=== PATIENT | female | born 1945 | race Caucasian/White ===

== ENCOUNTER 2025-01-06 11:07 | Emergency (ER) | payer MEDICARE, SELFPAY ==
--- NOTE | ~2025-01-06 | CT_ITS ---
EXAMINATION: CT HEAD WITHOUT IV CONTRAST HISTORY: fall with head strike. TECHNIQUE: Unenhanced helical CT of the head was performed per standard departmental protocol. Coronal and sagittal reformats of the head were also evaluated. One or more of the following techniques was used for dose reduction: Automated exposure control, adjustment of the mA and/or kV according to patient size, use of iterative reconstruction technique. DLP: 674 mGy-cm COMPARISON: There are no prior studies available for comparison. FINDINGS: BRAIN: There is mild prominence of the ventricular system and cortical sulci, consistent with atrophy. Periventricular and subcortical white matter hypodensities are noted which are nonspecific, but often seen in the setting of small vessel ischemic disease. There is no mass effect or midline shift. No intra- or extra-axial fluid collections are identified. SINUSES: The visualized paranasal sinuses are clear. The mastoid air cells and middle ear cavities are well pneumatized. ORBITS: The visualized orbits are unremarkable. BONES/SOFT TISSUES: The extracranial soft tissues are unremarkable. The calvarium is intact. No suspicious lytic or sclerotic lesions. CT/CT head/brain wo IV con IMPRESSION: No acute intracranial abnormality. Electronically signed by: Steve Raphael MD 01/06/2025 11:59 AM EDT
--- NOTE | ~2025-01-06 | CT_ITS ---
EXAMINATION: CT FACIAL BONES WITHOUT CONTRAST CLINICAL INFORMATION: Status post fall. Facial injury. COMPARISON: None available. TECHNIQUE: Contiguous axial images through the maxillofacial bones using 3 mm collimation with bone and soft tissue algorithm. Sagittal and coronal reformatted images acquired. DLP: 340.[address] examination was performed using dose optimization techniques as appropriate, variously including the following: *Automated exposure control *Adjustment of mA and/or kV according to patient size (this includes techniques or standardized protocols for targeted exams where dose is matched to indication/reason for exam; i.e. extremities or head) *Use of iterative reconstruction technique FINDINGS: Nasal bones demonstrated in the subtle cortical irregularity on the left side. No nasal septum and vomer are intact. Orbital rims, orbital fissures and orbital apices are intact. Zygomatic arcs are intact. Maxilla, pterygoid plates are intact. Mandible is intact. Temporomandibular joints are intact No hematoma, intraconal or extraconal compartments of the orbits. Eyeballs are intact. Mild mucosal thickening with a polypoid morphology in the paranasal sinuses without air-fluid levels. Tympanic cavities and mastoid cells are aerated. Calcified plaques in the cavernous supracavernous segments both ICAs. Degenerative changes in the periodontal region. Normal alignment between the occipital condyles and lateral masses of C1. CT/CT facial bones wo IV con IMPRESSION: Probable minimal nasal bone fractures. No intraorbital hematoma. Electronically signed by: Gilmar Harmon MD 01/06/2025 12:06 PM EDT
[2025-01-06 11:11] VITALS: BP 161/82; PULSE 75; RESP 16; TEMP 36.2; O2SAT 98; BMI 25.8
--- NOTE | 2025-01-06 11:14 | ED.GENADULT ---
HPI - General Adult General Chief complaint: Fall Stated complaint: fall Time Seen by Provider: 01/06/25 11:49 History of Present Illness ED Provider: Peterson Olivia MD HPI narrative: 79-year-old female with osteoporosis, osteoarthritis, chronic vertigo with nonsyncopal fall just prior to arrival she did put her hands out in front of her felt she may have injured the left 2nd digit pointing to the middle phalange on that side. Also has facial injuries. No vomiting she does feel vertiginous since laying flat on the CT table. No neck pain focal neurologic symptoms. Related Data Previous Rx's ?Medication ?Instructions ?Recorded ondansetron 4 mg disintegrating 4 mg PO Q8H PRN nausea and 01/06/25 tablet vomiting #7 tabs Allergies Allergy/AdvReac Type Severity Reaction Status Date / Time prednisone Allergy Involuntary Verified 01/06/25 11:15 Spasms PMFSH Social History Social History Smoked in Last 30 Days: No Use of substances other than those prescribed or required for medical reasons: No Advance Directives: Yes Advance Directives Information Provided: No Advance Directives on File: No Physical Exam ED Exam Exam: Primary Survey: GCS: 15 Airway: Intact airway Breathing: Spontaneous respirations with bilateral breath sounds Circulation: Palpable bilateral carotid, brachial, femoral DP pulses with good skin color and distal perfusion. Disability: No gross paresis of the extremities or obvious focal neuro deficit. E FAST Ultrasound: NA Secondary Survey GENERAL: Well appearing. No apparent distress. Alert. HEAD: The head is atraumatic, without swelling or ecchymosis of the face or behind the ears, including the periorbital area. There is no tenderness to face, and the oral and nasal mucosa are nonbloody. Dentition is intact. The TMs are without hemotympanum. NECK: There is no midline cervical neck tenderness or stepoffs. The patient denies any numbness, tingling, or weakness of the extremities. ?After CT/clinical clearance; Later examination after collar removal: The patient is able to range their neck completely without midline cervical pain, numbness, tingling, or weakness. EYES: Normal to inspection. Sclera non-icteric. EOMI, Pupils grossly symmetric/reactive. ENMT: Abrasions to the nose no gross deformity. Tender over the proximal nasal bone structures. No epistaxis. Upper lip over the skin/filled from region there is a superficial 1 cm laceration of subcutaneous depth no debris or foreign body. This is not through and through there was only bruising on the buccal mucosal aspect inside the mouth. Well aligned jaw and dentition without trauma. RESPIRATORY: Respiratory effort normal. Lungs clear to auscultation bilaterally. CARDIOVASCULAR: Regular rate. Normal rhythm. No murmur. No rubs. GI: Soft, non-tender, non-distended. No rebound or guarding. No masses palpable. No hepatosplenomegaly. No bruising. MSK: Chest Wall: Atraumatic, nontender, no crepitus, seat belt sign or ecchymosis. Back: No ecchymosis, no abrasions or other external signs of trauma, no midline spinal tenderness. Upper Extremities: Atraumatic, no swelling, deformity, focal tenderness, +FROM of all joints. Lower Extremities: Atraumatic, no swelling, deformity, focal tenderness, +FROM of all joints. SKIN: No jaundice. No abrasions, lacerations, or ecchymosis. NEUROLOGICAL: Alert. Comprehensive Neuro exam: Face symmetric, tongue midline, strong symmetric eye closure intact strong face deviation and shoulder shrug. Sensation intact to light touch throughout 5 out of 5 strength in bilateral upper extremities, 5 and 5 strength in lower extremities bilaterally? PSYCHIATRIC: Alert. Appearance appropriate for situation. Attitude cooperative. Vital Signs: Vital Signs - 24 hr 01/06/25 13:55 Temperature 97.2 F Pulse Rate 75 Respiratory Rate 16 Blood Pressure 161/82 H Pulse Oximetry 98 Oxygen Delivery Method Room Air BMI result Body Mass Index 25.8 Course Course Course Narrative: This is a rapid medical exam performed by Gunnar Dimas NP: Additional HPI, ROS, PE not included below will be deferred to primary provider. Patient is an 79-y/o F not anticoagulated presenting with facial injuries after a fall the other day. States she was gardening and lost her balance falling forward. Abrasions and swelling to nose and upper lip. Does not feel any loose teeth. Plan: imaging Medications Administered Discontinued Medications Generic Name Dose Route Start Last Admin Trade Name Freq PRN Reason Stop Dose Admin Acetaminophen 975 mg 01/06/25 12:31 01/06/25 12:39 Acetaminophen 325 Mg Tablet PO 01/06/25 12:32 975 mg ONCE ONE Administration Lidocaine HCl 5 ml 01/06/25 12:31 01/06/25 12:41 Lidocaine Hcl 1 % 20 Ml Vial INFILTRATI 01/06/25 12:32 5 ml ONCE ONE Administration Ondansetron HCl 4 mg 01/06/25 12:31 01/06/25 12:39 Ondansetron Odt 4 Mg Tab.Lyledis MEHULINGU 01/06/25 12:32 4 mg ONCE ONE Administration Procedures Laceration Laceration 1: Site: face Description: linear Depth: simple, single layer Local Anesthetic: lidocaine 1% Amount of anesthesia used (mL): 4 Pre-repair: wound explored Skin layer closed with: other (Rapid absorbing Vicryl) Size (cm): 6-0 Number of sutures: 3 Medical Decision Making Medical Decision Making MDM Narrative: Medical Decision Makin-year-old female with nonsyncopal fall directly onto the face. Finger injury but does not appear to be fracture clinically. Facial abrasions. CT notes a nondisplaced nasal bone fracture. There was no epistaxis and she is breathing comfortably. No facial deformities otherwise. EOMI in vision intact. Head and cervical spine CT also negative. No loss of consciousness or clear signs of concussion. No extremity or torso injury on examination or by history. Suture of the small laceration of the upper lip without complication Preliminary Favored Differential Diagnosis: Nonsyncopal fall, facial laceration, head injury, neck injury, facial bony injury among additional considered etiologies Testing Interpreted Independently: ?See below for details Radiology or Lab testing Results Reviewed: ?See below for details Consults: ?See below for details Independent Historians/External Chart Reviews: ?See below for details Social Determinants of Health Impacting MDM/Planning: ?See below for details Discharge Plan Discharge Clinical Impression: Laceration of skin of face, Closed nondisplaced fracture of nasal bone Patient Disposition: Home, Self-Care Instructions: Nasal Fracture (ED), Laceration (ED) Additional Instructions: Facial Injury Discharge Instructions Wound Care: - Keep the laceration site clean and dry for the first 24 hours. After that, gently wash with soap and water daily. - Apply a thin layer of petroleum jelly or antibiotic ointment if recommended, and cover with a clean bandage. - Avoid picking at scabs or touching the wound unnecessarily. - Watch for signs of infection: increased redness, swelling, warmth, pus, or fever. If these occur, contact your healthcare provider promptly.[1]https://pubmed.ncbi.nlm.nih.gov/56862105 Suture Removal: - If sutures were used, they will need to be removed in 5?7 days for facial wounds. Follow up as directed for suture removal.[1]https://pubmed.ncbi.nlm.nih.gov/42177310 Pain and Swelling: - Use acetaminophen or ibuprofen as needed for pain, unless otherwise instructed. - Apply a cold pack to the area for 15?20 minutes at a time, several times a day, to reduce swelling. Nasal fracture care: ? Avoid any trauma or pressure to the nose. Do not blow your nose forcefully. ? Sleep with your head elevated to help reduce swelling. ? Mild nasal congestion is common; saline nasal spray may help. ? If you notice difficulty breathing through your nose, persistent bleeding, or a change in the shape of your nose, notify your provider.[1][4] Activity: ? Avoid contact sports or activities that could result in facial injury for at least 4?6 weeks, or as advised by your provider.[5-6] ? Resume normal activities as tolerated, but avoid strenuous exercise for the first few days. Follow-Up: ? Schedule a follow-up appointment within 3?5 days to reassess healing and nasal alignment.[1][4] ? If you experience severe pain, persistent bleeding, fever, or any concerning symptoms, seek medical attention immediately. Other Instructions: ? Tetanus prophylaxis is recommended if your immunization status is not up to date.[3] ? Antibiotics are not routinely needed for simple facial lacerations unless there is a high risk of infection or specific provider instructions.[2] If you have any questions or concerns, please contact your healthcare provider. Prescriptions: New ondansetron 4 mg tablet,disintegrating 4 mg PO Q8H PRN (Reason: nausea and vomiting) Qty: 7 0RF Interventions: ED Discharge Assessment Last Done: 01/06/25 13:55 Discharge Date/Time: 01/06/25 13:55 Print Language: Belarusian
[2025-01-06] MEDS: Lidocaine HCl 1 % 20 ML VIAL 5 ML INFILTRATI (12:41)
--- OUTSIDE RECORDS SUMMARY | 2025-01-06 12:59 | XMS_ITS ---
Author Name [facility] Organization Unknown Care Team Organization Name Specialty Phone Email Start Date End Da [facility] 11/23/2024
--- OUTSIDE RECORDS SUMMARY | 2025-01-06 12:59 | XMS_ITS | Patient Health Record ---
Author Organization [facility] Address [address] [place] [address] Care Team Providers Care Phlebotomist Associate Name Role Phone Cecile Arita Primary Care Provider Greta Cote Unavailable [phone] Allergies Allergen (clinical drug ingredient) Drug/Non Drug Allergy documented on EMR Reaction Allergy Type Onset Date Status aspirin Aspirin stomach issues Drug Allergy Ac tive econazole Econazole Nitrate Unknown Drug Allergy Active miconazole Azolen Tincture Unknown Drug Allergy Active luliconazole Luzu Unknown Drug Allergy Acti ve Adhesive rash, sensitive skin Allergy Active metronidazole Metronidazole Unknown Drug Allergy Active prednisolone Prednisolone shaking, jittery Drug Allergy Active Reason For Referral No Information Medications Medication SIG (Take, Route, Frequency, Duration) Notes Start Date End Date Status Atorvastatin Calcium 20 MG 1 tablet Oral ly Once a day Active Extra Strength Acetaminophen Active Prolia Active Furosemide 20 MG 1 tablet Orally Once a day Active Meclizine HCl 25 MG 1 tablet as needed Orally every 12 hrs Not-Taking Citalopram Hydrobromide 20 MG 1 tablet Orally Once a day; Duration: 30 day(s) Active Calcium 500 MG 1 tablet with meals Orally Twice a day; Duration: 30 day(s) Active Multi-Vitamin Active Social History Tobacco Use: Social History Observation Description Date Details (start date - stop date) Former Smoker NA - NA Tobacco Use/Smoking Question Answer Notes Are you a: former smoker Alcohol Screen Question Answer Notes Did you have a drink containing alcohol in the p ast year? No Points 0 Interpretation Negative Tobacco use other than smoking: Question Answer Notes Are you an other tobacco user? No Encounters Encounter Location Date Provider Diagnosis [facility] [address] [place] [address] 06/20/2024 Greta Hernandez Plan Of Treatment Pending Test Test Name Order Date X ray : Foot, left 3V 09/18/2022 X ray : Foot, left 3V 10/20/2022 X ray : Foot, left 3V 11/17/2022 X ray : Foot, left 3V 01/26/2023 Insurance Providers Payer Name Payer Address Payer Phone Subscriber Number Group Number Insured Name Patient Relationship to Insured Coverage Start Date Coverage End Date [employer] Preferred [address] [place] [address] [phone] [id number] Jeanna Delgadillo Self - patient is the insured Medical (General) History Medical History History ICD Code Arthritis Back,Hip,and Knee pain Broken bones basal cell carcinoma Cancer - jawline Crohns disease Depression Diverticulosis Osteoporosis Eczema chronic sinusitis Stomach ulcer Vertigo Measles Mumps Chicken pox Pneumonia Shingles 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 Joint implants/screws Surgical History Surgery Date(Month/Year) tonsillectomy 1948 Rib Surgery 09/29/1992 breast cyst - benign 10/05/1998 disc surgery - two bulging disks 999 rotator cuff tear repair colonoscopy - Ulcerative Proctitis 09/29 duodonel ulcer 1982 Thumb Surgery 04/28/2005 deviated septum repair 03/2005 bulging disk pelvic alignment - right le g shorter then left 07/21/2007 colonoscopy - one benign cyst 02/19/2010 wrist surgery 12/02/2010 mohs surgery 04/22/2013 hip surgery 11/2013 back surgery 02/2022 gall bladder 12/02/22 Hospitalization History Reason Date(Month/Year) [facility]- gall bladder, 5 day stay, reha b 3 weeks 12/02/22
--- OUTSIDE RECORDS SUMMARY | 2025-01-06 13:00 | XMS_ITS | Clinical Summary ---
Author Organization [facility] [address] [place] [address] [place] [address] Phone Care Team Providers Care Supervisor [facility] Name Role Phone Cecile Cesar MD Primary Care Prov ider Allergies Active Allergy Reactions Criticality Noted Date Comments Metronidazole 02/19/2023 Prednisolone Dizziness Medium 01/06/2023 Jittery Medications calcium-vitamin D3-vitamin K 650 mg-12.5 mcg-40 mcg tablet,chewable Take by mouth 2 times daily. Active meclizine (ANTIVERT) 25 mg tablet Take 1 tablet (25 mg total) by mouth 3 (three) times a day if needed. Active multivitamin (MULTIPLE VITAMINS ORAL) Take by mouth daily. Active rosuvastatin (CRESTOR) 10 mg tablet TAKE 1 TABLET BY MOUTH 1 TIME EACH DAY. 90 tablet 1 09/22/19 25 Active denosumab (PROLIA) 60 mg/mL syringe syringeIndicatio ns:Age-related osteoporosis without current pathological fracture Inject 1 mL (60 mg total) under the skin 1 (one) time for 1 dose. 1 mL 11/11/19 25 Active citalopram (CeleXA) 40 mg tablet TAKE 1 TABLET BY MOUTH EVERY DAY IN THE MORNING 90 tablet 12/20/19 25 Active citalopram (CeleXA) 40 mg tablet TAKE 1 TABLET BY MOUTH EVERY DAY IN THE MORNING 90 tablet 09/16/19 25 025 Discontinued Hospital, Clinic, or Other Facility Administered Medication Ordered Dose Route Frequency Start Date End Date Status sodium hyaluronate (viscosup) intra-articular injection 20 mgIndications:Primary osteoarthritis of right knee 20 mg IAtc Once PRN Procedure 12/07/2024 12/07/2024 Ended Active Problems Problem Noted Date Diagnosed Date Status post total replacement of left hip 2024 Trochanteric bursitis of left hip 10/19/2024 Overweight (BMI 25.0-29.9) 12/22/2023 Gait instability 11/12/2023 Primary osteoarthritis of right knee 11/12/2023 (HFpEF) heart failure with p reserved ejection fraction ([facility] V24, [facility] V28) 06/30/2023 Overview (02/18/2024): - Hospitalized for acute cholecystitis in December 2022 which was complicated by flash pulmonary edema with associated high BNP, abnormal lung imaging, hypoxia-responded to few doses of IV Lasix-patient was discharged on Lasix 20 mg p.o. daily - Echocardiogram (I have independently reviewed images) showed normal left ventricular cavity size, wall thickness, and systolic function, normal regional wall motion (though endocardial definition is somewhat suboptimal in apical views) with ejection fraction 55 to 60%-would recommend Definity contrast enhancement for future echoes- mildly dilated right ventricle with normal systolic function, no hemodynamically significant valve disease including no evidence of mitral valve prolapse or MR, normal left ventricular diastolic function, normal pulmonary artery systolic pressure Last Assessment & Plan: Clinically euvolemic on exam without evidence of decompensated heart failure, I suspect her episode of HFpEF exacerbation was situational in the setting of recent surgery with likely considerable IV fluid load. Under normal circumstances, she appears to be doing okay. Her more recent issues with fatigue and some exertional dyspnea is likely related to longstanding deconditioning with multiple recent hospitalizations and COVID-19 infection. She is slowly progressing in the right direction. I encouraged her to continue with what ever daily aerobic activity and strengthening activities she can do. This would include any chair exercises recommended by physical therapy, small amounts of walking, ongoing light housework. I encouraged her to pursue treatment for osteoporosis as this can often be a big cause of morbidity and even mortality as people age. Otherwise, she feels as though low-dose Lasix is helping her with abdominal bloating. It has not affected her kidneys or potassium in any way so I think this is fine to continue. She will be having an upcoming PCP appointment at which point I would recommend a repeat BMP. With regards to her question of septal hypokinesis on echo, after review of her echo I did not feel this to be the case. Furthermore, there is no objective evidence on EKG. Assessment & Plan (06/29/2024 4:02 PM EDT): Her HFpEF exacerbations have been very situational and limited. She has not had any sort of evidence of HFpEF exacerbation for a few years now. As such, I think scaling back to as needed Lasix is very reasonable. - Lasix as needed for weight gain greater than 3 pounds in 1 day, 5 pounds in 1 week, or increasing lower extremity edema. - Monitor weight daily. -Observe low-sodium diet Orders: Ambulatory referral to Cardiology ECG 12 lead Osteoarthritis of both hands 06/10/2023 Trigger middle finger of right hand 06/10/2023 Hyperlipidemia 03/03/2023 Overview (02/18/2024): Last Assessment & Plan: Repeat lipid profile along with routine labs at her next PCP appointment, continue rosuvastatin 10 mg at bedtime. I did review that because of this diagnosis she is at increased risk for for cardiovascular events over the next 10 years however, she is mitigating that risk with the rosuvastatin. Would also recommend Mediterranean style diet and as much regular aerobic exercise as she is able to do. Low suspicion for any current anginal symptoms. Assessment & Plan (06/29/2024 4:02 PM EDT): Most recent lipids are somewhat suboptimally controlled but the patient has never had cardiovascular events. As such, continue low-dose rosuvastatin. I will try to get her most recent lipid profile from her PCPs office. Age-related osteoporosis wit hout current pathological fracture 02/19/2023 Age-related osteoporosis with current pathologic al fracture 01/06/2023 Encounters Date Type Department Care Team Description 12/07/2024 3:30 PM EDT Office Visit Orthopedic Surgery - [address] [place] [phone] Camron Costa MD Primary osteoarthritis of right knee (Primary Dx) 11/30/2024 11:30 AM EDT Office Visit Orthopedic [facility] [address] [phone] Camron Costa MD Primary osteoarthritis of right knee (Primary Dx) 11/23/2024 3:30 PM EDT Office Visit [place] [address] [phone] Camron Costa MD Primary osteoarthritis of right knee (Primary Dx) 11/17/2024 Telephone Endocrinology - [address] [phone] Soto Ron MD 11/15/2024 Telephone Endocrinology [address] [phone] Soto Ron MD 11/10/2024 10:30 AM EDT Office Visit [address] [phone] Soto Ron MD Age-related osteoporosis without current pathological fracture (Primary Dx) 11/08/[address] [phone] Soto Ron MD 10/21/2024 Telephone Orthopedic [place] [address] [phone] Sharon Hathaway [place] 10/19/2024 9:30 AM EDT Office Visit Orthopedic [place] [address] [phone] Camron Costa MD Tendinitis involving left hip abductors (Primary Dx); Follow-up exam; Chronic midline low back pain without sciatica; Trochanteric bursitis of left hip; Primary osteoarthritis of right knee; Left hip pain; Strain of fascia of lower back; Status post total replacement of left hip; Age-related osteoporosis without current pathological fracture from Last 3 Months Immunizations Immunization Administration Dates Next Due Moderna SARS-CoV-2 COVID-19, mRNA, LNP-S, preservative free 09/04/2021,02/15/2021,06/21/2020,05/24 Pneumococcal conjugate 13 va lent (Prevnar 13, PCV13) 2mo and older 03/16/2014 Pneumococcal polysaccharide 23 valent (Pneumovax 23) 2yo and older 03/22/2015,02/27/2009 TD, Adsorbed, Preservative Free 09/04/2017 Tdap Tetanus diptheria acell ular pertussis (Boostrix; Adacel) 7yo and older 07/02/2006 Zoster Live 04/06/2009 Zoster recombinant (Shingrix ) 19yo and older 12/28/2017,09/04/2017 Surgical History Surgery Date Site/Laterality Comments CHOLECYSTECTOMY 11/2022 N/A PROCEDURE: LAPAROSCOPY, CHOLECYSTECTOMY TONSILLECTOMY 1947 PROCEDURE: HISTORICAL TONSILLECTOMY NASAL SEPTUM SURGERY 2004 PROCEDURE: GA SEPTOPLASTY/SUBMUCOUS RESECJ W/WO CARTILAGE GRF; COMMENT: Dr. Bear HAND SURGERY 2005 Right PROCEDURE: HISTORICAL HAND SURGERY; COMMENT: thumb surgery Dr. 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 History of shingles 1998 DX:History o f shingles History of proctitis 1988 DX:History of proctitis History of duodenal ulcer 1981 DX:His tory of duodenal ulcer History of basal cell carcinoma DX:History of basal cell carcinoma; COMMENT: Left leg Atopic dermatitis DX:Atopic derm atitis Lumbar degenerative disc disease DX:Lumbar degenerative disc disease History of fracture of rib 1992 DX:Hi story of fracture of rib History of cyst of breast 1998 DX:His tory of cyst of breast History of radius fracture 11/2010 DX:Hi story of radius fracture BPPV (benign paroxysmal posi tional vertigo) DX:BPPV (benign paroxysmal p ositional vertigo) Osteoarthritis of left hip DX:Os teoarthritis of left hip Family History Medical History Relation Name Comments LISA disease Brother No Known Problems Daughter Mary Other: Accidental Father homicide Alcohol abuse Mother Heart attack Mother Liver cancer Mother Breast cancer Neg Hx Colon cancer Neg Hx Ovarian cancer Neg Hx Relation Name Status Comments Brother Alive Daughter Mary Alive Father Maternal Grandfather Maternal Grandmother Mother Paternal Grandfather Paternal Grandmother Social History Tobacco Use Types Packs/Day Years Used Date Smoking Tobacco: Former Smokeless Tobacco: Never Alcohol Use Standard Drinks/Week Comments Not Currently 0 (1 standard drink = 0.6 oz pur e alcohol) Housing Instability Answer Date Recorde d Are you worried that in the next 2 months you may not have stable housing? No 12/17/2024 Food Access & Nutrition Answer Date Rec orded Do you have access to a vari ety of food including fruits and vegetables? Yes 12/17/2024 Access to Healthcare Answer Date Record ed Within the last 3 months, ho w many times did you visit the emergency department for your medical care? 0 12/17/2024 Health Literacy Answer Date Recorded How often do you need to hav e someone help you when you read instructions, pamphlets, or other written material from your doctor or pharmacy? Rarely 12/17/2024 Caregiver: How often do you need to have someone help you when you read instructions, pamphlets, or other written material from your doctor or pharmacy? Not on file 12/17/2024 Financial Risk Answer Date Recorded How hard is it for you to pa y for the very basics like food, housing, medical care, and air conditioning / heating? Not very hard 12/17/2024 Transportation Answer Date Recorded Has the lack of transportati on kept you from meetings, work, or from getting things needed for daily living? No Has the lack of transportati on kept you from medical appointments or from getting medications? No 12/17/2024 Social Isolation Answer Date Recorded How often do you feel lonely or isolated from th ose around you? Never 12/17/2024 Food Risk Answer Date Recorded Within the past 12 months we worried whether our food would run out before we got money to buy more. Never true 12/17/2024 Within the past 12 months th e food we bought just didn't last and we didn't have money to get more. Never true 12/17/2024 Dependent Care Answer Date Recorded Do you need help finding or paying for care for your loved ones. For example, special needs child caregiver or elderly care for an older adult? No 12/17/2024 Education Answer Date Recorded Do you think completing more education or training, like finishing a GED, going to college, or learning a trade, would be helpful for you? No 12/17/2024 Employment and Income Answer Date Recor ded During the last four weeks, have you been actively looking for work? No 12/17/2024 Living Situation Answer Date Recorded What is your living situation? Unrecognized valu e 12/17/2024 Comments Unknown Sex and Gender Information Value Date Recorded Sex Assigned at Female 03/03/2024 11:49 AM EST Legal Sex Female 8:16 PM EST Gender Identity Female 03/03/2024 11:49 AM EST Sexual Orientation Straight 03/03/2024 11 :49 AM EST Obstetrics History Last Filed Vital Signs Vital Sign Reading Time Taken Comments Blood Pressure 121/62 11/10/2024 10:25 AM EDT Pulse 90 11/10/2024 10:25 AM EDT Temperature - - Respiratory Rate 15 11/10/2024 10:25 AM EDT Oxygen Saturation 96% 06/08/2024 8:55 AM EST Inhaled Oxygen Concentration - - Weight 75.8 kg (167 lb) 11/10/2024 10:25 AM EDT Height 171.5 cm (5' 7.5 ) 11/10/2024 10:25 AM ED T Body Mass Index 25.77 11/10/2024 10:25 AM EDT Plan of Treatment Upcoming Encounters Date Type Department Care Team (Late st Contact Info) Description 01/11/2025 11:00 AM EDT Evaluation Outpatient Rehabilitation - [address] [phone] Jaylon Olivo, KEI 01/24/2025 2:45 PM EDT Appointment Bone Density - [address] [phone] 02/01/2025 12:30 PM EDT Office Visit [facility] - [address] [phone] Beatrice Tafoya PA [address] [place], [place] 03/09/2025 1:30 PM EST Office Visit Orthopedic Surgery - [address] 175 [facility] 250 [place] [phone] Camron Costa MD 175 [facility] [address] [place] [address] Health Maintenance Due Date Last Done Comments RSV Immunization Adult Patients (1 - 1-dose 75+ series) 10/12/2019 Medicare Annual Wellness Visit 04/30/2023 COVID-19 Vaccine (7 - Moderna risk season) 2024 01/28/2024, 05/09/2023, 09/04/2021, Additional history exists Influenza Vaccine (#1) 2024 01/20/2024, 2022 Hypertension/CHF/CAD Annual BMP Blood Test 11/14/2025 11/14/2024, 11/14/2024, 01/14/2023, Additional history exists Social Influencers of Health Screening 12/17/2025 12/17/2024 Falls Risk Assessment 12/20/2025 12/20/2024 DTaP,Tdap,and Td Vaccines (3 - Td or Tdap) 09/05/2027 09/04/2017, 07/02/2006 Cholesterol Screening (Lipid Panel) 11/14/2029 11/14/2024, 01/14/2023, 01/08/2022 Osteoporosis Screening (Bone Density Screening) 08/15/2032 08/15/2022, 03/07/2020, 09/25/2017, Additional history exists Pneumococcal Vaccine: 50+ Years Completed 03/22/2015, 03/16/2014, 02/27/2009 Zoster Vaccines Completed 12/28/2017, 06/04/2017, 04/06/2009 Depression Screening Completed 12/17/2024 HIB Vaccines Aged Out No longer eligi ble based on patient's age to complete this topic HPV Vaccines Aged Out No longer eligi ble based on patient's age to complete this topic Hepatitis A Vaccines Aged Out No long er eligible based on patient's age to complete this topic Hepatitis B Vaccines Aged Out No long er eligible based on patient's age to complete this topic IPV Vaccines Aged Out No longer eligi ble based on patient's age to complete this topic MMR Vaccines Aged Out No longer eligi ble based on patient's age to complete this topic Meningococcal ACWY Vaccine Aged Out N o longer eligible based on patient's age to complete this topic Meningococcal B Vaccine Aged Out No l onger eligible based on patient's age to complete this topic RSV Immunization Patients Under 20 months Aged Out No longer eligible based on patient's age to complete this topic Varicella Vaccines Aged Out No longer eligible based on patient's age to complete this topic Procedures Procedure Name Priority Date/Time Associated Diagnosis Comments GA ARTHROCENTESIS/ASPIRAT ION/INJECTION MAJOR JOINT/BURSA W/O U/S GUIDANCE Routine 12/07/2024 3:30 PM EDT Primary osteoarthritis of right knee GA ARTHROCENTESIS/ASPIRAT ION/INJECTION MAJOR JOINT/BURSA W/O U/S GUIDANCE Routine 11/30/2024 11:30 AM EDT Primary osteoarthritis of right knee GA ARTHROCENTESIS/ASPIRAT ION/INJECTION MAJOR JOINT/BURSA W/O U/S GUIDANCE Routine 11/23/2024 3:30 PM EDT Primary osteoarthritis of right knee CALCIUM Routine 11/14/2024 4:33 PM EDT Age-related osteoporosis without current pathological fracture CREATININE, SERUM Routine 11/14/2024 4:3 3 PM EDT Age-related osteoporosis without current pathological fracture BUN Routine 11/14/2024 4:33 PM EDT Age-related osteoporosis without current pathological fracture GA PROTEIN ELECTROPHORETIC FRACTIONATION & QUANTITATION SERUM Routine 11/14/2024 4:32 PM EDT Age-related osteoporosis without current pathological fracture PROTEIN, TOTAL Routine 11/14/2024 4:32 PM EDT Age-related osteoporosis without current pathological fracture COMPREHENSIVE METABOLIC PANEL Routine 11/14/2024 4:32 PM EDT Mixed hyperlipidemia LIPID PANEL WITH REFLEX TO DIRECT LDL Routine 11/14/2024 4:32 PM EDT Mixed hyperlipidemia THYROID STIMULATING HORMONE Routine 11/14/2024 4:32 PM EDT Mixed hyperlipidemia PARATHYROID HORMONE INTACT Routine 11/14/2024 4:32 PM EDT Age-related osteoporosis without current pathological fracture PROTEIN ELECTROPHORESIS, SERUM Routine 11/14/2024 4:32 PM EDT Age-related osteoporosis without current pathological fracture VITAMIN D 25 HYDROXY Routine 11/14/2024 4:32 PM EDT Age-related osteoporosis without current pathological fracture CALCIUM, URINE, 24H Routine 11/14/2024 4 :29 PM EDT Age-related osteoporosis without current pathological fracture CREATININE, URINE, 24H Routine 4:29 PM EDT Age-related osteoporosis without current pathological fracture XR PELVIS 1-2 VIEWS Routine 10/19/2024 1 0:11 AM EDT Tendinitis involving left hip abductors Left hip pain Status post total replacement of left hip XR LUMBAR SPINE 2-3 VIEWS Routine 10/19/2024 10:11 AM EDT Chronic midline low back pain without sciatica Strain of fascia of lower back Age-related osteoporosis without current pathological fracture History of vertebral compression fracture XR KNEE 4+ VIEWS RIGHT Routine 9:38 AM EDT Follow-up exam Primary osteoarthritis of right knee from Last 3 Months Results * GA ARTHROCENTESIS/ASPIRATION/INJECTION MAJOR JOINT/BURSA W/O U/S GUIDANCE (12/07/2024 3:30 PM EDT) Camron Allison MD - 12/07/2024 3:30 PM EDT Camron Costa MD 12/07/2024 4:22 PM L Inj/Asp: R knee Details: 22 G needle, anterolateral approach Medications: 20 mg sodium hyaluronate (viscosup) 10 mg/mL(mw 2.4 -3.6 million) Outcome: tolerated well, no immediate complications Procedure: After discussion of risks and benefits, informed consent was verbally obtained for RIGHT knee viscosupplementation gel injection. The lateral arthroscopic soft spot was identified and marked. This was sterilized with chlorhexidine and alcohol. I then injected EUFLEXXA 20mg intra-articularly without resistance. Hemostasis was achieved and a sterile Band-Aid was applied. The patient tolerated the procedure well. Postinjection risks and instructions were reviewed including activity modification, cold therapy, potential NSAIDs use, and monitoring for signs of complications. Informed Consent: Laterality: Right Relevant images/test results available and reviewed: yes Health status cleared: Yes Procedure/treatment, purpose, treatment alternatives, risks/potential complications and benefits explained: yes Patient questions answered: yes Patient agrees, verbalizes understanding, and wants to proceed: yes Consent given by: Patient Informed consent discussion completed by Physician/NIHARIKA with patient: Verbal Pre-procedure timeout performed: yes us Camron Costa MD IN CLINIC/BEDSIDE ORD ERABLES Final Result * GA ARTHROCENTESIS/ASPIRATION/INJECTION MAJOR JOINT/BURSA W/O U/S GUIDANCE (11/30/2024 11:30 AM EDT) Narrative Camron Costa MD - 11/30/2024 11:30 AM EDT Camron Costa MD 11/30/2024 12:25 PM L Inj/Asp: R knee Indications: pain Details: 22 G needle, anterolateral approach Medications: 20 mg sodium hyaluronate (viscosup) 10 mg/mL(mw 2.4 -3.6 million) Procedure: After discussion of risks and benefits, informed consent was verbally obtained for RIGHT knee viscosupplementation gel injection. The lateral arthroscopic soft spot was identified and marked. Area of prior bruising was avoided. This was sterilized with chlorhexidine and alcohol. I then injected EUFLEXXA 20MG intra-articularly without resistance. Hemostasis was achieved and a sterile Band-Aid was applied. The patient tolerated the procedure well. Postinjection risks and instructions were reviewed including activity modification, cold therapy, potential NSAIDs use, and monitoring for signs of complications. Informed Consent: Laterality: Right Relevant images/test results available and reviewed: yes Health status cleared: Yes Procedure/treatment, purpose, treatment alternatives, risks/potential complications and benefits explained: yes Patient questions answered: yes Patient agrees, verbalizes understanding, and wants to proceed: yes Consent given by: Patient Informed consent discussion completed by Physician/NIHARIKA with patient: Verbal Pre-procedure timeout performed: yes us Camron Costa MD IN CLINIC/BEDSIDE ORD ERABLES Final Result * GA ARTHROCENTESIS/ASPIRATION/INJECTION MAJOR JOINT/BURSA W/O U/S GUIDANCE (11/23/2024 3:30 PM EDT) Camron Allison MD - 11/23/2024 3:30 PM EDT Camron Costa MD 11/23/2024 3:49 PM L Inj/Asp: R knee Indications: pain Details: 22 G needle, anterolateral approach Medications: 20 mg sodium hyaluronate (viscosup) 10 mg/mL(mw 2.4 -3.6 million) Outcome: tolerated well, no immediate complications Procedure: After discussion of risks and benefits, informed consent was verbally obtained for RIGHT knee viscosupplementation gel injection. The lateral arthroscopic soft spot was identified and marked. This was sterilized with chlorhexidine and alcohol. I then injected EUFLEXXA 20MG intra-articularly without resistance. Hemostasis was achieved and a sterile Band-Aid was applied. The patient tolerated the procedure well. Postinjection risks and instructions were reviewed including activity modification, cold therapy, potential NSAIDs use, and monitoring for signs of complications. Informed Consent: Laterality: Right Relevant images/test results available and reviewed: yes Health status cleared: Yes Procedure/treatment, purpose, treatment alternatives, risks/potential complications and benefits explained: yes Patient questions answered: yes Patient agrees, verbalizes understanding, and wants to proceed: yes Consent given by: Patient Informed consent discussion completed by Physician/NIHARIKA with patient: Verbal Pre-procedure timeout performed: yes us Camron Costa MD IN CLINIC/BEDSIDE ORD ERABLES Final Result * (ABNORMAL) Creatinine (11/14/2024 4:33 PM EDT) [facility] Signature Creatinine 0.97 0.50 - 1.10 mg/dL LAB CHEMISTRY METHOD 11/14/2024 8:03 PM EDT [facility] eGFR 59(L) >=60 mL/min/1. 73m2 LAB CHEMISTRY METHOD 11/14/2024 8:03 PM EDT [facility] Comment:Calculation based on the Chronic Kidney Disease Epidemiology Collaboration (CKD-EPI) equation refit without adjustment for race. Blood Venous blood specimen / Unknown Venipuncture / Unknown 11/14/2024 4:33 PM EDT 11/14/2024 4:33 PM EDT us Soto Ron MD LAB BLOOD ORDERABLES Final Resul t Performing Organization Address [facility]/ZIP Co de Phone Number [facility] [address] [place] [address], [place] [phone] * (ABNORMAL) BUN (11/14/2024 4:33 PM EDT) BUN 26(H) 5 - 25 mg/dL LAB CHEMISTRY METHOD 11/14/2024 8:03 PM EDT [facility] Blood Venous blood specimen / Unknown Venipuncture / Unknown 11/14/2024 4:33 PM EDT 11/14/2024 4:33 PM EDT us Soto Ron MD LAB BLOOD ORDERABLES Final Resul t Performing Organization Address [facility]/ZIP Co de Phone Number [facility] [address] [place] [address], [place] [phone] * Calcium (11/14/2024 4:33 PM EDT) Calcium 9.3 8.5 - 10.5 mg/dL LAB CHEMISTRY METHOD 11/14/2024 8:03 PM EDT [facility] Blood Venous blood specimen / Unknown Venipuncture / Unknown 11/14/2024 4:33 PM EDT 11/14/2024 4:33 PM EDT us Soto Ron MD LAB BLOOD ORDERABLES Final Resul t Performing Organization Address [facility] Hospital/ZIP Co de Phone Number [facility] [address] [place] [address], [place] [phone] * PATHOLOGIST REVIEW PROTEIN ELECTROPHORESIS (11/14/2024 4:32 PM EDT) Pathologist Interpretation Kait Calhoun MD 11/15/2024 1:10 PM EDT [facility] Blood Venous blood specimen / Unknown Venipuncture / Unknown 11/14/2024 4:32 PM EDT 11/14/2024 4:32 PM EDT Soto Ron MD LAB BLOOD ORDERABLES Final Resul t Performing Organization Address [facility]/ZIP Co de Phone Number [facility] [address] [place] [address], [place] [phone] * (ABNORMAL) Lipid panel with reflex to direct LDL (11/14/2024 4:32 PM EDT) Cholesterol 161 0 - 200 mg/dL LAB CHEMISTRY METHOD 11/14/2024 7:27 PM EDT [facility] Triglycerides 189(H) 0 - 150 mg/dL LAB CHEMISTRY METHOD 11/14/2024 7:27 PM EDT [facility] HDL 54 >=40 mg/dL LAB CHEMISTRY METHOD 11/14/2024 7:27 PM EDT [facility] LDL Calculated 69 0 - 100 mg/dL LAB CHEMISTRY METHOD 11/14/2024 7:27 PM EDT [facility] Comment:Estimated LDL Calcul ated using equation: Total cholesterol - HDL cholesterol - (Triglycerides/5) VLDL Cholesterol Sarbjit 37.8 mg/dL LAB CHEMISTRY METHOD 11/14/2024 7:27 PM EDT [facility] Non HDL Chol. (LDL+VLDL) 107 <145 mg/dL LAB CHEMISTRY METHOD 11/14/2024 7:27 PM EDT [facility] Chol/HDL Ratio 3.0 0.0 - 4.4 LAB CHEMISTRY METHOD 11/14/2024 7:27 PM EDT [facility] Blood Venous blood specimen / Unknown Venipuncture / Unknown 11/14/2024 4:32 PM EDT 11/14/2024 4:32 PM EDT Cecile Cesar MD LAB BLOOD ORDERABL ES Final Result Performing Organization Address [facility]/ZIP Co de Phone Number [facility] [address] [place] [address], [place] [phone] * Vitamin D 25 hydroxy (11/14/2024 4:32 PM EDT) Vit D, 25-Hydroxy 45.7 30.0 - 80.0 ng/mL LAB CHEMISTRY METHOD 11/14/2024 8:01 PM EDT [facility] Blood Venous blood specimen / Unknown Venipuncture / Unknown 11/14/2024 4:32 PM EDT 11/14/2024 4:32 PM EDT Soto Ron MD LAB BLOOD ORDERABLES Final Resul t Performing Organization Address [facility] Co de Phone Number [facility] [address] [place] [address], [place] [phone] * Thyroid stimulating hormone (11/14/2024 4:32 PM EDT) TSH 0.90 0.40 - 4.00 mcIU/mL LAB CHEMISTRY METHOD 11/14/2024 8:13 PM EDT [facility] Blood Venous blood specimen / Unknown Venipuncture / Unknown 11/14/2024 4:32 PM EDT 11/14/2024 4:32 PM EDT Cecile Cesar MD LAB BLOOD ORDERABL ES Final Result Performing Organization Address [facility]/ZIP Co de Phone Number [facility] [address] [place] [address], [place] [phone] * Protein electrophoresis, serum (11/14/2024 4:32 PM EDT) Total Protein 7.1 6.0 - 8.0 g/dL LAB CHEMISTRY METHOD 11/15/2024 1:10 PM EDT [facility] Albumin, Serum 3.5 2.9 - 4.1 g/dL LAB CHEMISTRY METHOD 11/15/2024 1:10 PM EDT [facility] Alpha 1 Globulin (g/dL) 0.2 0.1 - 0.5 g/dL LAB CHEMISTRY METHOD 11/15/2024 1:10 PM EDT [facility] Alpha 2 Globulin (g/dL) 1.1 0.7 - 1.5 g/dL LAB CHEMISTRY METHOD 11/15/2024 1:10 PM EDT [facility] Beta (g/dL) 0.9 0.7 - 1.5 g/dL LAB CHEMISTRY METHOD 11/15/2024 1:10 PM EDT [facility] Gamma Globulin (g/dL) 1.4 0.7 - 1.9 g/dL LAB CHEMISTRY METHOD 11/15/2024 1:10 PM EDT [facility] SPEP Interpretation No M-Celso seen. Essentially normal pattern. LAB CHEMISTRY METHOD 11/15/2024 1:10 PM EDT [facility] Blood Venous blood specimen / Unknown Venipuncture / Unknown 11/14/2024 4:32 PM EDT 11/14/2024 4:32 PM EDT Soto Ron MD LAB BLOOD ORDERABLES Final Resul t Performing Organization Address [facility]/ZIP Co de Phone Number [facility] [address] [place] [address], * Protein, total (11/14/2024 4:32 PM EDT) Total Protein 7.1 6.0 - 8.0 g/dL LAB CHEMISTRY METHOD 11/14/2024 8:03 PM EDT [facility] Blood Venous blood specimen / Unknown Venipuncture / Unknown 11/14/2024 4:32 PM EDT 11/14/2024 4:32 PM EDT Soto Ron MD LAB BLOOD ORDERABLES Final Resul t Performing Organization Address [facility]/ZIP Co de Phone Number [facility] [address] [place] [address], [place] [phone] * Parathyroid hormone intact (11/14/2024 4:32 PM EDT) Pathologist [facility] [place] PTH 50.9 18.5 - 88.0 pcg/mL LAB CHEMISTRY METHOD 11/14/2024 8:01 PM EDT [facility] Blood Venous blood specimen / Unknown Venipuncture / Unknown 11/14/2024 4:32 PM EDT 11/14/2024 4:32 PM EDT Soto Ron MD LAB BLOOD ORDERABLES Final Resul t Performing Organization Address [facility]/ZIP Co de Phone Number [facility] [address] [place] [address], [place] [phone] * (ABNORMAL) Comprehensive metabolic panel (11/14/2024 4:32 PM EDT) Pathologist [facility] [place] Sodium 138 133 - 145 mmol/L LAB CHEMISTRY METHOD 11/14/2024 7:27 PM EDT [facility] Potassium 4.1 3.5 - 5.5 mmol/L LAB CHEMISTRY METHOD 11/14/2024 7:27 PM EDT [facility] Chloride 104 96 - 110 mmol/L LAB CHEMISTRY METHOD 11/14/2024 7:27 PM [facility] CO2 30 21 - 32 mmol/L LAB CHEMISTRY METHOD 11/14/2024 7:27 PM [facility] Anion Gap 4 3 - 11 LAB CHEMISTRY METHOD 11/14/2024 7:27 PM [facility] Glucose 82 70 - 100 mg/dL LAB CHEMISTRY METHOD 11/14/2024 7:27 PM [facility] BUN 25 5 - 25 mg/dL LAB CHEMISTRY METHOD 11/14/2024 7:27 PM [facility] Creatinine 0.98 0.50 - 1.10 mg/dL LAB CHEMISTRY METHOD 11/14/2024 7:27 PM [facility] eGFR 58(L) >=60 mL/min/1. 73m2 LAB CHEMISTRY METHOD 11/14/2024 7:27 PM [facility] Comment:Calculation based on the Chronic Kidney Disease Epidemiology Collaboration (CKD-EPI) equation refit without adjustment for race. BUN/Creatinine Ratio 25.5 LAB CHEMISTRY METHOD 11/14/2024 7:27 PM [facility] Calcium 9.3 8.5 - 10.5 mg/dL LAB CHEMISTRY METHOD 11/14/2024 7:27 PM [facility] AST (SGOT) 25 10 - 42 unit/L LAB CHEMISTRY METHOD 11/14/2024 7:27 PM [facility] ALT (SGPT) 20 10 - 60 unit/L LAB CHEMISTRY METHOD 11/14/2024 7:27 PM [facility] Alkaline Phosphatase 74 42 - 121 unit/L LAB CHEMISTRY METHOD 11/14/2024 7:27 PM [facility] Total Protein 7.4 6.0 - 8.0 g/dL LAB CHEMISTRY METHOD 11/14/2024 7:27 PM [facility] Albumin 3.8 3.2 - 5.0 g/dL LAB CHEMISTRY METHOD 11/14/2024 7:27 PM EDT [facility] Total Bilirubin 0.6 0.0 - 1.4 mg/dL LAB CHEMISTRY METHOD 11/14/2024 7:27 PM EDT [facility] Blood Venous blood specimen / Unknown Venipuncture / Unknown 11/14/2024 4:32 PM EDT 11/14/2024 4:32 PM EDT Cecile Cesar MD LAB BLOOD ORDERABL ES Final Result Performing Organization Address [facility]/ZIP Co de Phone Number [facility] [address] [place] [address], * Calcium, urine, 24H (11/14/2024 4:29 PM EDT) Calcium, Ur 10.0 mg/dL LAB CHEMISTRY METHOD 11/14/2024 7:32 PM EDT [facility] Calcium, 24H Urine 170 50 - 400 mg/24 hr LAB CHEMISTRY METHOD 11/14/2024 7:32 PM EDT [facility] Urine Volume 1,700 mL LAB CHEMISTRY METHOD 11/14/2024 7:32 PM EDT [facility] Collection Interval, Ur 24 hr LAB CHEMISTRY METHOD 11/14/2024 7:32 PM EDT [facility] Urine Urine specimen from urethra / Unknown Non-blood Collection / Unknown 11/14/2024 4:29 PM EDT 11/14/2024 4:29 PM EDT Soto Ron MD LAB URINE ORDERABLES Final Resul t [facility] [address] [place] [address], [place] [phone] * (ABNORMAL) Creatinine, urine, 24H (11/14/2024 4:29 PM EDT) Creatinine, Urine 29.0 mg/dL LAB CHEMISTRY METHOD 11/14/2024 7:32 PM EDT [facility] Creatinine, 24H Ur 493(L) 800 - 2,000 mg/24 Hr LAB CHEMISTRY METHOD 11/14/2024 7:32 PM EDT [facility] Urine Volume 1,700 mL LAB CHEMISTRY METHOD 11/14/2024 7:32 PM EDT [facility] Collection Interval, Ur 24 hr LAB CHEMISTRY METHOD 11/14/2024 7:32 PM EDT [facility] Urine Urine specimen from urethra / Unknown Non-blood Collection / Unknown 11/14/2024 4:29 PM EDT 11/14/2024 4:29 PM EDT Soto Ron MD LAB URINE ORDERABLES Final Resul t [facility] [address] [place] [address], * XR Pelvis 1-2 Views (10/19/2024 10:11 AM EDT) Anatomical Region Laterality Modality Body, Pelvis Computed Radiogr aphy Camron Costa MD IMG XR PROCEDURES Fin al Result * XR Lumbar Spine 2-3 Views (10/19/2024 10:11 AM EDT) Anatomical Region Laterality Modality Spine, L-spine Computed Radiogr aphy Narrative 10/21/2024 12:49 PM EDT 2 views lumbar spine obtained today including AP and lateral reviewed. These show chronic compression deformities involving T12 and L1 with bone cement. Also partial compression fracture of L3. These are unchanged from prior x-rays obtained/01/27. No significant listhesis. Lower lumbar spondylosis. Generalized osteopenia. Partially imaged left total hip replacement shows well-fixed acetabular shell without circumferential radiolucencies in femoral head centered within the acetabulum. us Camron Costa MD IMG XR PROCEDURES Fin al Result * XR Knee 4+ Views Right (10/19/2024 9:38 AM EDT) Anatomical Region Laterality Modality Lower Extremities, Knee Right Computed Radiography Narrative 10/21/2024 12:48 PM EDT 4 views of the right knee obtained today including AP, Vazquez, lateral, sunrise were reviewed. They show severe degenerative change involving medial compartment including complete joint space narrowing, small marginal osteophytes, subchondral sclerosis. Moderate degenerative change involving patellofemoral compartment, and mild degenerative change involving lateral compartment. Degenerative changes involving patellofemoral compartment have progressed from prior x-rays obtained 09/14/2023. No significant effusion. 7 degrees tibial varus. AP, Vazquez, and sunrise views of the left knee show mild degenerative change involving medial compartment, and mild - moderate degenerative change involving patellofemoral compartment. Camron Costa MD IMG XR PROCEDURES Fin al Result from Last 3 Months Insurance [employer] Care Teams Supervisor [employer] Relationship Specialty Start Date End Date Cecile Cesar MD [address] [place] [phone] PCP - General Internal Medicine 05/25/24
[2025-01-06 13:55] VITALS: BP 161/82; PULSE 75; RESP 16; TEMP 36.2; O2SAT 98
== END 2025-01-06 13:55 | disposition home or self-care (01) ==
PROVIDERS: Emergency Provider Emergency Medicine; PCP Internal Medicine
DX: S01.511A Laceration without foreign body of lip, initial encounter (principal); S02.2XXA Fracture of nasal bones, initial encounter for closed fracture; R51.9 Headache, unspecified; M81.0 Age-related osteoporosis without current pathological fracture; W19.XXXA Unspecified fall, initial encounter; Y93.9 Activity, unspecified; Y92.9 Unspecified place or not applicable; Y99.9 Unspecified external cause status
CPT/HCPCS: 12011; 70450; 70486; 99284; J2003

== ENCOUNTER → 2025-01-06 11:16 | Outpatient (BNV) | payer MEDICARE, SELFPAY | PROVIDERS: Emergency Provider Emergency Medicine; PCP Internal Medicine; Visit Provider Radiology Diagnostic Radiology | DX: S01.91XA Laceration without foreign body of unspecified part of head, initial encounter (principal); S09.90XA Unspecified injury of head, initial encounter; W19.XXXA Unspecified fall, initial encounter | CPT/HCPCS: 70450; 70486 ==